=== PATIENT | male | born 1960 | race Asian ===

== ENCOUNTER 2025-05-11 14:33 | Emergency (ER) | payer OTHER ==
[~2025-05-11] VITALS: Ht 152.4 cm; Wt 70.5 kg
[~2025-05-11 14:33] MED LIST: IBUP600 PO
[2025-05-11 14:39] VITALS: BP 135/87; PULSE 82; RESP 18; TEMP 98.4; O2SAT 99
[2025-05-11] MEDS ORDERED: TRAM50TA5 PO (17:09)
== END 2025-05-11 17:21 | disposition home or self-care (01) ==
LOC: EMS 14:39
DX: M25.571 Pain in right ankle and joints of right foot (principal); M25.572 Pain in left ankle and joints of left foot; M25.562 Pain in left knee; H91.3 Deaf nonspeaking, not elsewhere classified
CPT/HCPCS: 99284; 73562-TC; 73610-TC; Z7502; Z7610